=== PATIENT | female | born 1995 | race Two or more races ===

== ENCOUNTER 2024-07-05 17:38 | Emergency (ER) | payer OTHER ==
[~2024-07-05] VITALS: Ht 149.9 cm; Wt 65.8 kg
[2024-07-05] MEDS ORDERED: WELLBUTRIN XL300 MG PO (18:49)
[2024-07-05] MEDS ORDERED: VISTARIL50 MG/ML IM (18:49)
[2024-07-05] MEDS ORDERED: REMERON45 M1 (18:49)
[2024-07-05 18:50] VITALS: BP 112/76; O2SAT 100
[2024-07-05] MEDS ORDERED: FAMOtidine 20 MG TABLET PO ONE (19:00)
[2024-07-05] MEDS ORDERED: TRAMADOL HCL 50 MG TABLET PO ONE (19:00)
[2024-07-05 19:47] LABS: HEMATOCRIT 41.7 % (36.0-45.00); MEAN CELL VOLUME 90.4 fL (80.00-100.00); MEAN CORPUSCULAR HEMOGLOBIN 30.4 pg (27.00-32.0); MEAN CORPUSCULAR HGB CONC 33.6 g/dl (32.0-36.0); PLATELET COUNT 271 K/uL (150-450); RED BLOOD COUNT 4.62 M/uL (4.00-6.00); RED CELL DISTRIBUTION WIDTH 13.7 % (11.5-14.5)
[2024-07-05] MEDS ORDERED: CEFTRIAXONE SODIUM 1,000 MG VIAL IM ONE (20:00)
[2024-07-05 20:10] LABS: ALBUMIN 4.5 gm/dL (3.4-5.0); ALKALINE PHOSPHATASE 75 U/L (50-136); ALT/SGPT 19 U/L (12-78); ANION GAP 11 (10.0-20.0); AST/SGOT 14 U/L (15-37); BILIRUBIN TOTAL 0.51 mg/dL (0.3-1.2); BLOOD UREA NITROGEN 12 mg/dL (7-18); BUN CREA RATIO 17 (7.0-25.0); CARBON DIOXIDE 26 mEq/L (21-32); CHLORIDE 107 mmol/L (98-107); CREATININE SERUM 0.72 mg/dL (0.55-1.02); GFR 95.11; GLOBULINA 3.8 G/DL (2.4-3.5); GLUCOSE FASTING 82 mg/dL (65-100); OSMOLALITY SERUM 280 MOSM/KG (275-295); POTASSIUM 3.36 mEq/L (3.5-5.1); SODIUM 141 mmol/L (136-145); TOTAL PROTEIN 8.3 gm/dL (6.4-8.2)
[2024-07-05 20:12] LABS: HCG QUANTITATIVE < 1 mUI/mL (1-3)
[2024-07-05] MEDS ORDERED: CEFTRIAXONE SODIUM 1,000 MG VIAL ONE (20:18)
[2024-07-05 20:57] LABS: PH,URINE 5.5 (5.0-8.0); URINE APPEARANCE Turbid; URINE BILIRRUBIN Negative (NEGATIVE); URINE BLOOD Large; URINE COLOR Dark Yellow; URINE GLUCOSE Negative (NEGATIVE); URINE LEUKOCYTE Negative; URINE NITRATE Negative; URINE UROBILINOGEN 0.2 E.U./dl
[2024-07-05 21:01] LABS: URINE BACTERIA 3540.8 uL (0.0-1933); URINE CAST 5.74 uL (0.0-1.40); URINE EPITHELIAL CELLS 62.6 uL (0.0-38.8); URINE RBC 14.5 uL (0.0-20.8); URINE WBC 25.6 uL (0.0-23.2)
[2024-07-05 21:26] LABS: URINE KETONE 80 (NEGATIVE); URINE PROTEIN 100 (NEGATIVE)
[2024-07-05] MEDS ORDERED: 0.9 % SODIUM CHLORIDE 1,000 ML IV ONE (21:45)
[2024-07-05 23:38] LABS: HEMOGLOBIN 12.4 g/dL (12.0-15.00); MEAN CELL VOLUME 88.7 fL (80.00-100.00); MEAN CORPUSCULAR HEMOGLOBIN 29.8 pg (27.00-32.0); MEAN CORPUSCULAR HGB CONC 33.6 g/dl (32.0-36.0); PLATELET COUNT 232 K/uL (150-450); RED BLOOD COUNT 4.17 M/uL (4.00-6.00)
[2024-07-05] MEDS ORDERED: BUTALBIT-ACETA1 EACH PO (23:54)
[2024-07-05] MEDS ORDERED: PEPCID AC20 MG PO (23:54)
[2024-07-05] MEDS ORDERED: CEFUROXIME500 MG PO (23:54)
== END 2024-07-06 00:03 | disposition home or self-care (01) ==
LOC: ER 17:40
PROVIDERS: General Practice
DX: R51.9 Headache, unspecified (principal); Z20.822 Contact with and (suspected) exposure to COVID-19